=== PATIENT | female | born 2000 | race Hispanic/Latino ===

== ENCOUNTER 2020-06-29 19:54 | Emergency (ER) | payer OTHER ==
[~2020-06-29] VITALS: Ht 167.6 cm; Wt 71.0 kg
[2020-06-29] MEDS ORDERED: PRENTAB9 PO (20:05)
[2020-06-29 20:48] LABS: BASO % 0.4 % (0.0-1.0); EOS # 0.2 10^3/uL (0.0-0.5); EOS % 2.1 % (0.0-3.0); HEMATOCRIT 36.5 % (36.0-47.0); HEMOGLOBIN 11.7 g/dl (12.0-15.5); LYMPH # 1.7 10^3/uL (1.5-5.0); MEAN CORPUSCULAR HEMOGLOBIN 28.1 pg (27.0-33.0); MEAN CORPUSCULAR HGB CONC 32.1 g/dl (32.0-36.5); MEAN CORPUSCULAR VOLUME 87.7 fl (80.0-96.0); MONO # 0.5 10^3/uL (0.0-0.8); MONO % 6.1 % (0.0-5.0); PLATELET COUNT, AUTOMATED 195 10^3/uL (150-450); RED BLOOD COUNT 4.16 10^6/uL (4.00-5.40); WHITE BLOOD COUNT 8.5 10^3/uL (4.0-10.0)
--- NOTE | 2020-06-29 21:29 | REPVR ---
PROCEDURE INFORMATION: Exam: US First Trimester, Transabdominal Exam date and time: 06/29/2020 9:12 PM Age: 19 years old Clinical indication: Lmp or gestational age (in weeks): 04/09/20; Antepartum complications; Other: ? ? Leaking fluid; ; Additional info: Leaking clear fluid-11wks TECHNIQUE: Imaging protocol: Real-time transabdominal obstetrical ultrasound of the maternal pelvis and a first trimester , less than 14 weeks 0 days, with image documentation. COMPARISON: No relevant prior studies available. FINDINGS: Gestation: Intrauterine gestational sac with pole. Embryonic/ heart rate: heartbeat of 176 bpm. Presentation: Variable lie. Placenta: Posterior placenta. Amniotic fluid: Amniotic fluid is normal for gestational age. BIOMETRY: [place]-Rump length: The crown-rump length measures 5.1 cm suggesting an age of 11 weeks 6 days. The EDC is 01/12/2021. MATERNAL: Uterus: Unremarkable. Cervix: Closed cervix measuring 3.2 cm. Right adnexa: The right ovary measures 2.2 x 3.0 x 2.7 cm and demonstrates arterial and venous blood flow. Left adnexa: The left ovary measures 3.4 x 2.4 x 2.3 cm and demonstrates arterial and venous blood flow. Intraperitoneal space: No intraperitoneal free fluid. IMPRESSION: Single live intrauterine fetus in variable lie with an estimated age of 11 weeks 6 days. The EDC is 01/12/2021. Electronically signed by: Ron Fagan On 06/29/2020 21:29:05 PM
[2020-06-29 21:59] VITALS: BP 129/58
== END 2020-06-29 22:00 | disposition home or self-care (01) ==
LOC: M ED 19:54
DX: O26.891 Other specified pregnancy related conditions, first trimester (principal); N89.9 Noninflammatory disorder of vagina, unspecified; Z3A.11 11 weeks gestation of pregnancy

== ENCOUNTER 2020-07-17 14:04 | Emergency (ER) | payer OTHER ==
[~2020-07-17] VITALS: Ht 167.6 cm; Wt 72.8 kg
[~2020-07-17 14:04] MED LIST: PRENTAB9 PO
--- OUTSIDE RECORDS SUMMARY | 2020-07-17 14:09 | CCD ---
Author Author [facility] Organization [facility] Address Unknown Phone Unavailable Support Name Relationship Address Phone [facility] Next Of Kin [address] [place] [address] Unavailable PRABHA REILLY Next Of Kin [phone] [place] [address] Re-disclosure Warning The records that you are about to access may contain information from federally-assisted alcohol or drug abuse programs. If such information is present, then the following federally mandated warning applies: This information has been disclosed to you from records protected by federal confidentiality rules (42 CFR part 2). The federal rules prohibit you from making any further disclosure of this information unless further disclosure is expressly permitted by the written consent of the person to whom it pertains or as otherwise permitted by 42 CFR part 2. A general authorization for the release of medical or other information is NOT sufficient for this purpose. The Federal rules restrict any use of the information to criminally investigate or prosecute any alcohol or drug abuse patient.The records that you are about to access may contain highly sensitive health information, the redisclosure of which is protected by Article 27-F of the [facility] Public Health law. If you continue you may have access to information: Regarding HIV / AIDS; Provided by facilities licensed or operated by the [facility] Office of Mental Health; or Provided by the [facility] Office for People With Developmental Disabilities. If such information is present, then the following [facility] mandated warning applies: This information has been disclosed to you from confidential records which are protected by state law. State law prohibits you from making any further disclosure of this information without the specific written consent of the person to whom it pertains, or as otherwise permitted by law. Any unauthorized further disclosure in violation of state law may result in a fine or half-way sentence or both. A general authorization for the release of medical or other information is NOT sufficient authorization for further disc losure. Insurance Providers Payer name Policy type / Coverage type Policy ID Covered alliance party ID Covered alliance party's relationship to nathan Policy Nathan Plan Information [facility] [employer] [id number]
--- OUTSIDE RECORDS SUMMARY | 2020-07-17 15:14 | CCD ---
Author Author [facility] Organization [facility] Address Unknown Phone Unavailable Support Name Relationship Address Phone [facility] Next Of Kin [address] [place] [address] Unavailable PRABHA REILLY Next Of Kin [id number] [place] [address] Re-disclosure Warning The records that you are [...] is protected by Article 27-F of the [facility] Public Health law. If you continue you may have access to information: Regarding HIV / AIDS; Provided by facilities licensed or operated by the [facility] Office of Mental Health; or Provided by the [facility] Office for People With Developmental Disabilities. If such information is present, then the following [facility] mandated warning applies: This information has been [...] law may result in a fine or assisted sentence or both. A general authorization for the release of medical or other information is NOT sufficient authorization for further disc losure. Insurance Providers Payer name Policy type / Coverage type Policy ID Covered alliance party ID Covered alliance party's relationship to nathan Policy Nathan Plan Information [facility] [employer] [id number]
[2020-07-17] MEDS ORDERED: BISACODYL 10 MG SUPP PR ONE (15:15)
[2020-07-17] MEDS ORDERED: MOM 30ML SUSPENSION UDC PO ONE (16:45)
[2020-07-17] MEDS ORDERED: COLA100C5 PO (16:56)
[2020-07-17 17:08] VITALS: BP 131/77
== END 2020-07-17 17:12 | disposition home or self-care (01) ==
LOC: M ED 14:04
DX: O99.612 Diseases of the digestive system complicating pregnancy, second trimester (principal); K59.00 Constipation, unspecified; Z3A.14 14 weeks gestation of pregnancy

== ENCOUNTER 2021-01-15 07:07 | Inpatient (IN) | payer OTHER ==
[~2021-01-15] VITALS: Ht 167.6 cm; Wt 92.5 kg
[2021-01-15] VITALS (33 sets, daily range): BP systolic 97–153; BP diastolic 53–96
[~2021-01-15 07:07] MED LIST changes: +COLA100C5 PO
[2021-01-15] MEDS ORDERED: UNIS25TA3 PO (07:29)
[2021-01-15] MEDS ORDERED: HOME MED LIST COMPLETE! XX SCH (07:30)
[2021-01-15] MEDS ORDERED: PENICILLIN G POTASSIUM IV 5 MU in D5W MINI-BAG PLUS 100 ML IV STA (08:12)
[2021-01-15] MEDS ORDERED: TRANEXAMIC ACID INJection 1,000 MG in NS 100 ML IV PRN (08:15)
[2021-01-15] MEDS ORDERED: LIDOCAINE 1% MDV 20ML VIAL INFIL PRN (08:15)
[2021-01-15] MEDS ORDERED: METHYLERGONOVINE MALEATE 0.2 MG/ML VIAL (J2210) IM PRN (08:15)
[2021-01-15] MEDS ORDERED: LR 1,000 ML IV SCH ×2 (08:15→12:20)
[2021-01-15] MEDS ORDERED: OXYTOCIN INJ 10 UNITS/ML VIAL (J2590) IM PRN (08:15)
[2021-01-15] MEDS ORDERED: OXYTOCIN DRIP 30 UNITS in IV 1 EA IV PRN ×4 (08:15)
[2021-01-15] MEDS ORDERED: CARBOPROST TROMETHAMINE 250 MCG/ML AMP IM PRN (08:15)
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
[2021-01-15 09:12] LABS: HEMATOCRIT 35.3 % (36.0-47.0); HEMOGLOBIN 11.3 g/dl (12.0-15.5); MEAN CORPUSCULAR HEMOGLOBIN 25.3 pg (27.0-33.0); PLATELET COUNT, AUTOMATED 215 10^3/uL (150-450); RED BLOOD COUNT 4.47 10^6/uL (4.00-5.40); WHITE BLOOD COUNT 12.1 10^3/uL (4.0-10.0)
[2021-01-15 09:41] LABS: APPEARANCE, URINE HAZY (CLEAR); BACTERIA, URINE AUTO NEGATIVE (NEGATIVE); BILIRUBIN, URINE AUTO NEGATIVE (NEGATIVE); BLOOD, URINE BLOOD NEGATIVE (NEGATIVE); COLOR, URINE YELLOW (YELLOW); GLUCOSE, URINE (UA) AUTO NEGATIVE (NEGATIVE); KETONE, URINE AUTO NEGATIVE (NEGATIVE); LEUKOCYTE ESTERASE, URINE AUTO 2+ (NEGATIVE); MUCUS, URINE SMALL (NEGATIVE); NITRITE, URINE AUTO NEGATIVE (NEGATIVE); PROTEIN, URINE AUTO NEGATIVE (NEGATIVE); RBC, URINE AUTO 1 /HPF (0-3); SPECIFIC GRAVITY URINE AUTO 1.013 (1.002-1.035); SQUAMOUS EPITHELIAL CELL UR AU 7 /HPF (0-6); UROBILINOGEN, URINE AUTO 0.2 mg/dL (0.0-2.0); WBC, URINE AUTO 8 /HPF (0-3)
[2021-01-15 09:43] LABS: ALT/SGPT 13 U/L (12-78); BILIRUBIN,TOTAL 0.1 MG/DL (0.2-1.0); CREATININE FOR GFR 0.68 MG/DL (0.55-1.30); GLOMERULAR FILTRATION RATE > 60.0 (>60); LDH LACTATE DEHYDROGENASE 178 U/L (84-246); URIC ACID 5.4 MG/DL (2.6-6.0)
[2021-01-15 10:10] LABS: TOTAL PROTEIN,RANDOM URINE 16.9 MG/DL (0.0-12.0)
[2021-01-15] MEDS ORDERED: FENTANYL 2MCG/ML ROPIVACAINE 0.2% IN 0.9% NACL 100ML IVBAG As Ordered ONE (10:10)
[2021-01-15] MEDS ORDERED: diphenhydrAMINE 50MG/ML VIAL (J1200) IV PRN (11:20)
[2021-01-15] MEDS ORDERED: REFRIGERATOR IV KEYS XX PRN (11:20)
[2021-01-15] MEDS ORDERED: LACTATED RINGER'S 1000 ML IV PRN (11:20)
[2021-01-15] MEDS ORDERED: FENTANYL/ROPIVACAINE/NACL BAG 100 ML EPIDURAL SCH (11:20)
[2021-01-15] MEDS ORDERED: ONDANSETRON 4MG/2ML VIAL IV PRN (11:20)
[2021-01-15] MEDS ORDERED: ePHEDrine SULFATE 25 MG/5 ML(5MG/ML) SYRINGE IV PRN (11:20)
[2021-01-15] MEDS ORDERED: EPIDURAL/PCA KEYS XX PRN (11:20)
[2021-01-15] MEDS ORDERED: EPIDURAL COMMENT XX SCH (11:20)
[2021-01-15] MEDS ORDERED: NALOXONE INJ 0.4MG/1ML VIAL (J2310 PER 1MG) IV PRN (11:20)
[2021-01-15] MEDS ORDERED: OXYTOCIN DRIP 30 UNITS in IV 1 EA IV SCH (12:20)
--- NOTE | 2021-01-15 12:31 | IPNPDOC ---
Obstetrical Progress Note Date of Service Jan 15, 2021 Subjective Reports now comfortable with epidural. Spouse at BS for support. Objective Vital Signs Date Time Temp Pulse Resp B/P (MAP) Pulse Ox O2 Delivery O2 Flow Rate FiO2 01/15/21 11:03 75 124/72 (89) 01/15/21 07:29 18 O: FHR- 135 with moderate variability, accelerations present. No decelerations. Contractions-Every 3-6 SVE- Per RN /0. Minimal change since exam on admission. Membranes- intace Assessment and Plan Additional Comments A/P 20yo G 1 P 0 at 40+0 wks gestation admitted for abnormal FHR in triage with elevated BP in early labor. O positive/RI/ VSS- normotensive since admission. FHR Cat 1 tracing, reassuring SVE: minimal change since admission. Comfortable with ERICA GBS positive: has received 1 doses thus far, continue prophylaxis until delivery Plan to start augmentation with pitocin titration due to minimal cervical change. AROM when able. Anticipate Consult physician service as needed VERONICA ESPINAL CNM Jan 15, 2021 12:31
[2021-01-15] MEDS: PENICILLIN G POTASSIUM IV 2.5 MU in IV 1 EA IV SCH ×2 (13:03→16:59)
--- NOTE | 2021-01-15 14:41 | IPNPDOC ---
Obstetrical Progress Note Date of Service Jan 15, 2021 Subjective Very comfortable with epidural and received good Rest. Spouse at bedside for support. Objective Vital Signs Date Time Temp Pulse Resp B/P (MAP) Pulse Ox O2 Delivery O2 Flow Rate FiO2 01/15/21 11:03 75 124/72 (89) 01/15/21 07:29 18 O: FHR- 135 with moderate variability, accelerations present. early decelerations present. Contractions- Present every 3-4 min. SVE- 5/90/-1 Membranes- bulging bag on exam. AROM at 1428 of clear fluid. Laboratory Tests 01/15/21 08:43 Item Value Date Time Urine Random Creatinine 138.0 MG/DL 01/15/21 0852 Urine Random Total Protein 16.9 MG/DL H 01/15/21 0852 Aspartate Amino Transf (AST/SGOT) 13 U/L 01/15/21 0843 Alanine Aminotransferase (ALT/SGPT) 13 U/L 01/15/21 0843 Lactate Dehydrogenase 178 U/L 01/15/21 0843 Assessment and Plan Additional Comments A/P 20yo G 1 P 0 at 40+0 wks gestation admitted for abnormal FHR in triage with elevated BP in early labor. O positive/RI/ VSS- normotensive since admission 1054. Currently isolated elevated blood pressure at admission. Normal Tox labs on admission. FHR Cat 1 tracing, reassuring SVE: making cervical change on pitocin argumentation. AROM at this time, clear fluid. Comfortable with ERICA GBS positive: has received 2 doses thus far, continue prophylaxis until delivery Continue augmentation with pitocin titration Anticipate Consult physician service as needed VERONICA ESPINAL CNM Jan 15, 2021 14:38
[2021-01-15] MEDS ORDERED: ACETAMINOPHEN 500 MG TAB PO PRN (18:10)
[2021-01-15] MEDS ORDERED: ANUSOL HC CREAM 30GM TOP PRN (18:10)
[2021-01-15] MEDS ORDERED: DOCUSATE SODIUM 100MG CAPSULE PO PRN (18:10)
[2021-01-15] MEDS ORDERED: MOM 30ML SUSPENSION UDC PO PRN (18:10)
[2021-01-15] MEDS ORDERED: DIBUCAINE 1% OINTMENT 30GM TOP PRN (18:10)
[2021-01-15] MEDS ORDERED: IBUPROFEN 800 MG TAB PO PRN (18:10)
[2021-01-15 18:11] LABS: CORD GAS ABE V -7.2; CORD GAS HCO3 V 19.4 MEQ/L; CORD GAS O2 SAT V 48.9 %; CORD GAS PH V 7.272 UNITS; CORD GAS SBC V 17.6 MEQ/L; CORD GAS TCO2 V 20.7 MEQ/L
--- NOTE | 2021-01-15 18:13 | DNPDOC ---
[facility] Delivery Note Delivery Note DATE OF DELIVERY: 01/15/2021 PREDELIVERY DIAGNOSIS: 40-0/7 weeks' gestation and labor. POST DELIVERY DIAGNOSIS: Delivered. PROCEDURE: Spontaneous vaginal delivery CONCRETING SUPERVISOR: Camryn Riojas ANESTHESIA: epidural ESTIMATED BLOOD LOSS: 100 mL. FINDINGS: 6 pound 11 ounce; 3036g male infant, Score 8/9, no nuchal cord DELIVERY SUMMARY: Patient is a 20-year-old 1 now para 1001 who was admitted to labor and delivery for labor at full term. She progressed to C/C/+2 and with good maternal effort delivered a viable infant. The infants head delivered OA and the head was allowed to spontaneously restitute KAREN. anterior shoulders delivered with gentle downward traction followed by posterior shoulder and corpus without difficulty. Normal 3- vessel cord clamped x 2 and cut by FOB after 1 minute of delayed cord clamping. Spontaneous cry noted. placed on maternal abdomen for [id number] Cord blood obtained. Placenta delivered spontaneously and inspection of the placenta demonstrated that it was intact. The cord insertion appeared normal. The uterus was cleared of all clots and debris. Fundal massage until firm. 30 units of Pitocin administered per protocol and the patient required no additional uterotonics. Inspection of cervix, perineum, and vaginal wall revealed a right periuretral laceration that was repaired with simple locking suture with 3-0 monocryl. . Repeat uterine examination noted uterine tone to be adequate and firm. Mom and stayed in L&D in hemodynamic stable condition upon my departure. Sponge, lap and needle count correct x 2. MITRA HILL Staff CAREN HILL MD Jan 15, 2021 6:13 pm
[2021-01-16 06:00] VITALS: BP 123/57
--- NOTE | 2021-01-16 07:10 | IPNPDOC ---
Progress Note Date of Service: Jan 16, 2021 Day#: 1 Progress Note SUBJECT: 20 yo ppd1 s/p 2 40 weeks of a 6 pound 11 ounce; 3036g male infant, Score 8/9, no nuchal cord doing well. She has been ambulating, voiding spontaneously without issue and tolerating regular diet. Breast and bottle feeding without issue. Reports lochia is like a normal period. OBJECTIVE: VITAL SIGNS: Within normal limits, afebrile. Alert and oriented times three. normal work of breathing Heart rate: Regular rate and rhythm. Abdomen: Fundus firm at U-2. . ASSESSMENT: 20 yo ppd1 s/p 2 40 weeks of a 6 pound 11 ounce; 3036g male , Score 8/9, no nuchal cord doing well. Vitals within normal limits, afebrile, hemodynamically stable with no evidence of infection. PLAN: 1. Discharge to home tomorrow 2. Tylenol and Motrin for pain. 3. Encourage breast feeding and ambulation. 4. ParaGard for contraception 5. Routine PP visit in 6 weeks in clinic. 6. Discussed return precautions at length. VS, I&O, 24H, Fishbone Vital Signs/I&O Vital Signs Date Time Temp Pulse Resp B/P (MAP) Pulse Ox O2 Delivery O2 Flow Rate FiO2 01/16/21 06:00 97.0 82 16 123/57 (79) 99 Room Air I&O- Last 24 Hours up to 6 AM 01/16/21 05:59 Intake Total 2160 ml Output Total 3400 ml Balance -1240 ml Laboratory Data 24H LABS Laboratory Tests 2 01/15/21 08:30: Serology Scanned Report Hepatitis B Testing 01/15/21 08:43: Nucleated Red Blood Cells % (auto) 0.0, Glomerular Filtration Rate > 60.0, Uric Acid 5.4, Total Bilirubin 0.1L, Aspartate Amino Transf (AST/SGOT) 13, Alanine Aminotransferase (ALT/SGPT) 13, Lactate Dehydrogenase 178, Syphilis Serology NONREACTIVE 01/15/21 08:52: Urine Color YELLOW, Urine Appearance HAZY, Urine pH 7.0, Urine Specific [place] 1.013, Urine Protein NEGATIVE, Urine Glucose (Auto)(UA) NEGATIVE, Urine Ketones (Auto) NEGATIVE, Urine Blood NEGATIVE, Urine Nitrite NEGATIVE, Urine Bilirubin NEGATIVE, Urine Urobilinogen 0.2, Urine Leukocyte Esterase (Auto) 2+H, Urine WBC (Auto) 8H, Urine RBC (Auto) 1, Urine Hyaline Casts (Auto) 0, Urine Bacteria (Auto) NEGATIVE, Urine Squamous Epithelial Cells 7, Urine Mucus (Auto) SMALL, Urine Sperm (Auto) , Urine Random Creatinine 138.0, Urine Random Total Protein 16.9H 01/15/21 18:04: Cord Venous Blood pH 7.272, Cord Venous Blood PCO2 43.0, Cord Venous Blood PO2 23.0, Cord Venous Blood HCO3 19.4, Cord Venous Blood Total CO2 20.7, Cord Venous Base Excess (Actual) -7.2, Cord Venous Base Excess (Standard) 17.6, Cord Venous Blood Oxygen Saturation 48.9 CBC/BMP Laboratory Tests 01/15/21 08:43 CAREN HILL MD Jan 16, 2021 7:10 am
[2021-01-16] MEDS: PRENATAL VITAMINS CHEWABLE TABLET PO SCH (07:50)
[2021-01-16 18:00] VITALS: BP 135/79
[2021-01-17 06:00] VITALS: BP 123/80
[2021-01-17] MEDS ORDERED: IBUP80TA PO (07:27)
[2021-01-17] MEDS ORDERED: COLA100C5 PO (07:27)
--- NOTE | 2021-01-17 08:49 | DSES ---
DISCHARGE SUMMARY DATE OF ADMISSION: 01/15/2021 DATE OF DISCHARGE: 01/17/2021 This lady is a 20-year-old, 3, now para 1, admitted at term with kris every 3 minutes, was found to be 3 cm. Had an epidural in place, delivered a live male infant, weighing 6 pounds 11 ounces, 3036 grams, scores of 8 and 9 at 1 and 5 minutes, respectively. Venous pH was 7.27, base excess -7.2. On her second day, we discussed phlebitis, cystitis, mastitis, endometritis, and cellulitis, diet, exercise, pain management, perineal and breast care. The rest of the examination is unremarkable. Normocephalic, atraumatic. Neck full range of motion. Pupils equal and reactive to light. Distal pulses are symmetric. No evidence of deep venous thrombosis (DVT), pulmonary embolus (PE), or superficial phlebitis. Chest is clear bilaterally to the bases. No wheezes or rhonchi. No costovertebral angle (CVA) tenderness. Abdomen is soft, four quadrant bowel sounds are noted. Uterus 2 below, lochia is moderate, perineum is intact. No rashes, lesions, or pruritus. No arthralgia, myalgia, no complaint of joint pain. No complaint of cough, wheeze, shortness of breath, or dyspnea on exertion. No nausea, vomiting, diarrhea, or constipation. No urgency or frequency. Her blood pressure is 123/80, respirations were 14, pulse was 87, temperature 97.1. Her admitting hemoglobin was 11.3, hematocrit 35.3, and platelets were 215. In summary, we have a term gestation, delivered a live male . Plan is for discharge today. Followup in the clinic at 6 weeks. Pickup medications at [place] [facility] and appointment is made and scheduled for the baby at pediatrics at [facility] ([facility]). All questions are answered, 20 minute discussion. Patient was discharged improved. MARY ANNE
[2021-01-17] MEDS: PRENATAL VITAMINS CHEWABLE TABLET PO SCH (10:52)
== END 2021-01-17 13:00 | disposition home or self-care (01) | DRG 807 ==
LOC: M LDO 07:07 → M LDI 08:18 → M OBS 20:16
PROVIDERS: ADMIT Advanced Practice Midwife; ATTEND Obstetrics & Gynecology
PROC: 10E0XZZ Delivery of Products of Conception, External Approach (ICD-10-PCS; principal; 2021-01-15)
PROC: 10907ZC Drainage of Amniotic Fluid, Therapeutic from Products of Conception, Via Natural or Artificial Opening (ICD-10-PCS; 2021-01-15)
PROC: 0UQMXZZ Repair Vulva, External Approach (ICD-10-PCS; 2021-01-15)
DX: O13.4 Gestational [pregnancy-induced] hypertension without significant proteinuria, complicating childbirth (principal); Z37.0 Single live birth; O99.824 Streptococcus B carrier state complicating childbirth; Z3A.40 40 weeks gestation of pregnancy; O71.82 Other specified trauma to perineum and vulva

== ENCOUNTER 2021-02-05 12:54 | Emergency (ER) | payer OTHER ==
[~2021-02-05] VITALS: Ht 167.6 cm; Wt 80.2 kg
[~2021-02-05 12:54] MED LIST changes: +IBUP80TA PO; +UNIS25TA3 PO
[2021-02-05 12:55] VITALS: BP 140/86
== END 2021-02-05 15:15 | disposition left against medical advice (07) ==
LOC: M ED 12:54
DX: Z53.29 Procedure and treatment not carried out because of patient's decision for other reasons (principal)

== ENCOUNTER 2021-02-07 23:01 | Emergency (ER) | payer OTHER ==
[~2021-02-07] VITALS: Ht 167.6 cm; Wt 79.5 kg
[2021-02-07 23:02] VITALS: BP 128/89
[2021-02-08 01:18] LABS: APPEARANCE, URINE CLEAR (CLEAR); BILIRUBIN, URINE AUTO NEGATIVE (NEGATIVE); BLOOD, URINE BLOOD NEGATIVE (NEGATIVE); COLOR, URINE YELLOW (YELLOW); GLUCOSE, URINE (UA) AUTO NEGATIVE (NEGATIVE); KETONE, URINE AUTO 2+ mg/dL (NEGATIVE); LEUKOCYTE ESTERASE, URINE AUTO 1+ (NEGATIVE); NITRITE, URINE AUTO NEGATIVE (NEGATIVE); PROTEIN, URINE AUTO NEGATIVE (NEGATIVE); SPECIFIC GRAVITY URINE AUTO 1.013 (1.002-1.035); UROBILINOGEN, URINE AUTO 0.2 mg/dL (0.0-2.0)
[2021-02-08 01:24] LABS: BACTERIA, URINE AUTO NEGATIVE (NEGATIVE); MUCUS, URINE SMALL (NEGATIVE); RBC, URINE AUTO 3 /HPF (0-3); SQUAMOUS EPITHELIAL CELL UR AU 0 /HPF (0-6); WBC, URINE AUTO 8 /HPF (0-3)
== END 2021-02-08 02:47 | disposition left against medical advice (07) ==
LOC: M ED 23:01
DX: Z53.29 Procedure and treatment not carried out because of patient's decision for other reasons (principal)